=== PATIENT | male | born 1940 | race Caucasian/White ===

== ENCOUNTER 2017-12-12 06:07 | Inpatient (IN) | payer MEDICARE, BC ==
[2017-12-12] MEDS ORDERED: SOD CHLORIDE 0.9% 100 ML, TRANEXAMIC ACID 3,000 MG IRR (06:30)
[2017-12-12] MEDS: GABAPENTIN 300 MG CAP PO ×2 (07:02→20:35)
[2017-12-12] MEDS: traMADol 50 MG TAB PO (07:02)
[2017-12-12] MEDS: DEXAMETHASONE 1 MG TAB PO (07:02)
[2017-12-12] MEDS: VANCOMYCIN 1 GM (PMX) 250 ML IVPB (07:04)
[2017-12-12] MEDS ORDERED: POLYMYXIN/BACITRACIN 1L IRRIG (07:14)
[2017-12-12] MEDS ORDERED: morphine SULFATE/PF (10 MG/10 ML) INJ (08:19)
[2017-12-12] MEDS ORDERED: MIDAZOLAM 1 MG/ML 2 ML INJ (08:19)
[2017-12-12] MEDS: TRANEXAMIC ACID 1,000 MG in DEXTROSE 5% 100 ML IVPB ×2 (09:23→09:27)
[2017-12-12] MEDS: CA CHLORIDE 10% 10 ML SYRINGE (10:00)
[2017-12-12] MEDS: THROMBIN 5000 UNIT VIAL (10:00)
[2017-12-12] MEDS: BUPIVACAINE 0.5% (SDV) 30 ML, morphine SULFATE (PF) 8 MG, EPINEPHrine 0.3 MG, KETOROLAC... IRR (10:12)
[2017-12-12] MEDS: POLYMYXIN/BACITRACIN 1L IRRIG (10:12)
[2017-12-12] MEDS ORDERED: MAGNESIUM HYDROXIDE 30ML CUP PO (10:30)
[2017-12-12] MEDS ORDERED: ONDANSETRON 4 MG INJ IV ×2 (10:30→11:30)
[2017-12-12] MEDS ORDERED: morphine 2 MG INJ IV ×2 (10:30)
[2017-12-12] MEDS ORDERED: KETOROLAC 15 MG INJ IV (10:30)
[2017-12-12] MEDS ORDERED: ACETAMINOPHEN 500 MG TAB PO (10:30)
[2017-12-12] MEDS ORDERED: DIPHENHYDRAMINE 50 MG INJ IV ×2 (10:30→11:30)
[2017-12-12] MEDS ORDERED: OXYCODONE/ACETAMINOPHEN (5/325) TAB PO (10:30)
[2017-12-12] MEDS ORDERED: ZOLPIDEM 5 MG TAB PO (10:30)
[2017-12-12] MEDS ORDERED: LIDOCAINE 2% (SDV) 5 ML INJ (10:49)
[2017-12-12] MEDS ORDERED: ETOMIDATE 20 MG INJ (10:49)
[2017-12-12] MEDS ORDERED: ONDANSETRON 4 MG INJ (10:50)
[2017-12-12 11:22] LABS: ADD MAN DIFF? NO
[2017-12-12 11:24] LABS: WHITE BLOOD COUNT 10.1 10^3/ul (4.8-10.8)
[2017-12-12 11:24] LABS: BASOPHILS % 0.2 % (0.0-2.0); EOSINOPHILS # 0.1 10^3/ul (0.0-0.5); EOSINOPHILS % 0.6 % (0.0-7.0); HEMATOCRIT 34.8 % (42.0-52.0); HEMOGLOBIN 11.9 g/dl (14.0-18.0); LYMPHOCYTES # 0.9 10^3/ul (0.8-2.9); LYMPHOCYTES % 8.8 % (15.0-51.0); MEAN CORPUSCULAR HGB CONC 34.2 g/dl (32.0-37.0); MEAN CORPUSCULAR VOLUME 90.6 fl (82.0-101.0); MEAN PLATELET VOLUME 10.1 fl (7.4-10.4); MONOCYTE # 0.4 10^3/ul (0.3-0.9); NEUTROPHIL # 8.6 10^3/ul (1.6-7.5); NEUTROPHILS % 85.6 % (39.0-77.0); PLATELET COUNT 160 10^3/UL (140-415); RED BLOOD COUNT 3.84 10^6/ul (4.70-6.10); RED CELL DISTRIBUTION WIDTH 12.2 % (11.5-14.5)
[2017-12-12] MEDS ORDERED: MEPERIDINE 25 MG INJ IV (11:30)
[2017-12-12] MEDS ORDERED: METOCLOPRAMIDE 10 MG INJ IV (11:30)
[2017-12-12] MEDS ORDERED: FENTAnyl 50 MCG/ML VIAL IV (11:30)
[2017-12-12] MEDS ORDERED: hydrALAzine 20 MG INJ IV (11:30)
[2017-12-12] MEDS ORDERED: NALOXONE (0.4 MG/ML) INJ IV (11:30)
[2017-12-12] MEDS ORDERED: HYDROmorphONE (0.2 MG/ML) 10ML SYG IV ×2 (11:30)
[2017-12-12] MEDS ORDERED: LABETALOL HCL 20MG INJ IV (11:30)
[2017-12-12] MEDS: TRANEXAMIC ACID 1,000 MG in DEXTROSE 5% 100 ML IV (11:35)
[2017-12-12] MEDS: DEXAMETHASONE 2 MG TAB PO ×3 (12:00→23:30)
[2017-12-12] MEDS: LACTATED RINGER'S 1,000 ML IV ×2 (13:00→20:37)
[2017-12-12] MEDS: SENNA/DOCUSATE NA (8.6MG/50MG) TAB PO (20:35)
[2017-12-12] MEDS: ATORVASTATIN 20 MG TAB PO (20:36)
[2017-12-13 05:28] LABS: ADD MAN DIFF? NO
[2017-12-13 05:30] LABS: BASOPHILS % 0.1 % (0.0-2.0); EOSINOPHILS % 0.1 % (0.0-7.0); HEMATOCRIT 31.3 % (42.0-52.0); HEMOGLOBIN 10.3 g/dl (14.0-18.0); LYMPHOCYTES # 0.7 10^3/ul (0.8-2.9); LYMPHOCYTES % 6.4 % (15.0-51.0); MEAN CORPUSCULAR HEMOGLOBIN 30.4 pg (29.0-33.0); MEAN CORPUSCULAR HGB CONC 32.9 g/dl (32.0-37.0); MEAN CORPUSCULAR VOLUME 92.3 fl (82.0-101.0); MEAN PLATELET VOLUME 10.5 fl (7.4-10.4); MONOCYTES % 9.7 % (0.0-11.0); NEUTROPHIL # 8.9 10^3/ul (1.6-7.5); NEUTROPHILS % 83.3 % (39.0-77.0); PLATELET COUNT 145 10^3/UL (140-415); RED BLOOD COUNT 3.39 10^6/ul (4.70-6.10); RED CELL DISTRIBUTION WIDTH 12.7 % (11.5-14.5)
[2017-12-13 05:30] LABS: WHITE BLOOD COUNT 10.7 10^3/ul (4.8-10.8)
[2017-12-13] MEDS: DEXAMETHASONE 2 MG TAB PO (05:41)
[2017-12-13] MEDS: PANTOPRAZOLE (EC) 40 MG TAB PO (05:42)
[2017-12-13] MEDS: LACTATED RINGER'S 1,000 ML IV ×3 (06:11→18:26)
[2017-12-13] MEDS: VALSARTAN 80 MG TAB PO (09:00)
[2017-12-13] MEDS: ASPIRIN 81 MG TAB PO (09:00)
[2017-12-13] MEDS: SENNA/DOCUSATE NA (8.6MG/50MG) TAB PO ×2 (09:08→20:17)
[2017-12-13] MEDS ORDERED: VITAMIN A & D 5 GM OINT PACKET TOP (13:06)
[2017-12-13] MEDS: OXYCODONE/ACETAMINOPHEN (5/325) TAB PO ×2 (16:23→20:12)
[2017-12-13] MEDS: GABAPENTIN 300 MG CAP PO (20:17)
[2017-12-13] MEDS: ATORVASTATIN 20 MG TAB PO (21:00)
[2017-12-14] MEDS: PANTOPRAZOLE (EC) 40 MG TAB PO (05:57)
[2017-12-14 06:23] LABS: ADD MAN DIFF? NO
[2017-12-14 06:39] LABS: BASOPHILS % 0.1 % (0.0-2.0); EOSINOPHILS % 0.2 % (0.0-7.0); HEMATOCRIT 28.9 % (42.0-52.0); HEMOGLOBIN 9.6 g/dl (14.0-18.0); LYMPHOCYTES # 1.4 10^3/ul (0.8-2.9); MEAN CORPUSCULAR HEMOGLOBIN 30.7 pg (29.0-33.0); MEAN CORPUSCULAR HGB CONC 33.2 g/dl (32.0-37.0); MEAN CORPUSCULAR VOLUME 92.3 fl (82.0-101.0); MEAN PLATELET VOLUME 11.5 fl (7.4-10.4); MONOCYTE # 1.4 10^3/ul (0.3-0.9); MONOCYTES % 12.5 % (0.0-11.0); NEUTROPHIL # 8.6 10^3/ul (1.6-7.5); NEUTROPHILS % 74.8 % (39.0-77.0); PLATELET COUNT 124 10^3/UL (140-415); RED BLOOD COUNT 3.13 10^6/ul (4.70-6.10); RED CELL DISTRIBUTION WIDTH 12.9 % (11.5-14.5)
[2017-12-14 06:39] LABS: WHITE BLOOD COUNT 11.5 10^3/ul (4.8-10.8)
[2017-12-14] MEDS: VALSARTAN 80 MG TAB PO (09:00)
[2017-12-14] MEDS: SENNA/DOCUSATE NA (8.6MG/50MG) TAB PO (09:09)
[2017-12-14] MEDS: ASPIRIN (EC) 325 MG TAB PO (09:10)
[2017-12-14] MEDS: OXYCODONE/ACETAMINOPHEN (5/325) TAB PO (09:10)
== END 2017-12-14 15:33 | disposition home or self-care (01) | DRG 470 ==
LOC: REC 06:07 → MS1 11:57
PROVIDERS: Orthopaedic Surgery
PROC: 0SRB04Z Replacement of Left Hip Joint with Ceramic on Polyethylene Synthetic Substitute, Open Approach (ICD-10-PCS; principal; 2017-12-12 08:00)
DX: M16.12 Unilateral primary osteoarthritis, left hip (principal); I10 Essential (primary) hypertension; E78.5 Hyperlipidemia, unspecified
CPT/HCPCS: 72170; 73530; 85025; 86999; 87086; 88304; 88311; 97110; 97116; 97163; 97530